=== PATIENT | male | born 1960 | race Hispanic/Latino ===

== ENCOUNTER 2018-01-19 11:42 | Emergency (ER) | payer OTHER ==
[2018-01-19 12:18] VITALS: BP 142/89; PULSE 85; RESP 17; TEMP 97; O2SAT 96
[2018-01-19] MEDS ORDERED: Insulin Regular 100 units/ml IV STA (12:50)
[2018-01-19] MEDS ORDERED: Insulin Regular 100 units/ml ONE (12:59)
[2018-01-19] MEDS: Sodium Chloride 0.9% 1,000 ML IV SCH ×2 (12:59→14:11)
[2018-01-19 13:07] LABS: BASO # 0.1 K/uL (0.0-0.2); BASO % 1.2 % (0.0-2.0); EOS # 0.1 K/uL (0.0-0.7); EOS % 0.9 % (0.0-4.0); HEMOGLOBIN 15.8 g/dL (12.0-18.0); LYMPH # 2.1 K/uL (1.0-4.3); LYMPH % 20.8 % (20.0-40.0); MEAN CELL VOLUME 88.9 fl (80.0-94.0); MEAN CORPUSCULAR HEMOGLOBIN 30.9 pg (27.0-31.0); MEAN CORPUSCULAR HGB CONC 34.8 g/dL (33.0-37.0); MEAN PLATELET VOLUME 8.5 fl (7.2-11.7); MONO # 1.1 K/uL (0.0-0.8); MONO % 11.3 % (0.0-10.0); NEUT # 6.7 K/uL (1.8-7.0); NEUT % 65.8 % (50.0-75.0); NRBC % 0.1 % (0.0-0.0); RBC 5.11 Mil/uL (4.40-5.90); RED CELL DISTRIBUTION WIDTH 13.5 % (11.5-14.5); WHITE BLOOD COUNT 10.1 K/uL (4.8-10.8)
[2018-01-19 13:12] LABS: ALBUMIN 3.6 g/dL (3.5-5.0); ALT/SGPT 91 U/L (21-72); AST/SGOT 52 U/L (17-59); BLOOD UREA NITROGEN 18 mg/dl (9-20); CALCIUM 9.2 mg/dL (8.4-10.2); GFR AFRICAN-AMERICAN > 60; GFR NON-AFRICAN AMERICAN > 60
--- NOTE | 2018-01-19 14:00 | ED PDOC ---
Hyperglycemia/Hypoglycemia Time Seen by Provider: 01/19/18 12:25 Chief Complaint (Nursing): High Blood Sugar Chief Complaint (Provider): High Blood Sugar History Per: Patient History/Exam Limitations: no limitations Onset/Duration Of Symptoms: Days (x 2 weeks ) Current Symptoms Are (Timing): Still Present Current Diabetic Medications: Insulin, Oral Medication : The patient does not have any of the infectious symptoms listed except for those marked. Additional Complaint(s): 57 year old male with a history of diabetes presents to the ED with fatigue and body aches for 2 weeks associated with tactile fever and chills. Reports he was recently diagnosed with diabetes 2 weeks ago and started on Metformin and an insulin pen. Patient reports he has been compliant with medication with the exception of today; patient reports he has not taken his insulin pen today. He further notes when he was diagnosed, his sugar was in the 300-400s range. His sugar has been ~230s this week. Denies nausea, vomiting, abdominal pain, shortness of breath, urinary symptoms, chest pain, headache, dizziness, weakness /numbness, and visual changes. PMD: Nori [place] Past Medical History Reviewed: Historical Data, Nursing Documentation, Vital Signs Vital Signs: Last Vital Signs Temp 97.0 F L 01/19/18 12:00 Pulse 85 01/19/18 12:00 Resp 17 01/19/18 12:00 BP 142/89 01/19/18 12:00 Pulse Ox 96 01/19/18 12:00 - Medical History PMH: Anxiety, Diabetes, HTN - Surgical History Surgical History: No Surg Hx - Family History Family History: States: Unknown Family Hx - Social History Current smoker - smoking cessation education provided: No Ex-Smoker (has not smoked in the last 12 months): Yes (Chews tobacco) Alcohol: < 2 Drinks/Day (=) Drugs: Denies - Home Medications Home Medications: Ambulatory Orders Medication Instructions Recorded Ciprofloxacin HCl [Cipro] 500 mg PO BID #14 tablet 01/19/18 - Allergies Allergies/Adverse Reactions: Allergies Allergy/AdvReac Type Severity Reaction Status Date / Time codeine AdvReac ITCHING Verified 01/19/18 12:18 Review of Systems ROS Statement: Except As Marked, All Systems Reviewed And Found Negative Constitutional: Positive for: Fever, Chills, Weakness (fatigue and body aches) Physical Exam - Reviewed Nursing Documentation Reviewed: Yes Vital Signs Reviewed: Yes - Physical Exam Comments: GENERALIZED APPEARANCE: Patient is awake, alert, oriented x3 in no acute distress. Resting comfortably. SKIN: Warm, dry; (-) cyanosis. HEAD: (-) scalp swelling or tenderness. EYES: (-) conjunctival pallor. ENMT: Mucous membranes moist. Airway patent, (-) stridor. NECK: Supple, FROM (-) tenderness, (-) stiffness, (-) lymphadenopathy. CHEST AND RESPIRATORY: (-) rales, (-) rhonchi, (-) wheezes; breath sounds equal bilaterally. Respirations even and nonlabored, speaking in full sentences. HEART AND CARDIOVASCULAR: (-) irregularity; (-) murmur ABDOMEN AND GI: Soft; (-) distention, (-) tenderness, (-) rebound, (-) guarding , (-) palpable masses, (-) flank/CVA tenderness. BACK: (-) midline tenderness EXTREMITIES: (-) deformity; (-) edema. Distal pulses: present. NEURO AND PSYCH: Mental status as above. 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 Strength symmetric. Gait: normal. Speech : clear. - Laboratory Results Result Diagrams: 01/19/18 12:53 01/19/18 12:53 Urine dip results: Positive for: Leukocyte Esterase (trace), Blood (trace- lysed ), Glucose (500), Protein (trace). Negative for: Nitrate, Ketones, Bilirubin - ECG O2 Sat by Pulse Oximetry: 96 (RA) Pulse Ox Interpretation: Normal Medical Decision Making Medical Decision Makin:31 Impression: hyperglycemia and fatigue Initial Plan: --IV access --Accucheck upon arrival: 316 --CMP --Urine dipstick --CBC --Insulin 6 units IV --NS IV --Repeat Finger stick s/p insulin administration 1400 Labs reviewed, hyperglycemia noted otherwise grossly unremarkable. 1415 Repeat Accucheck: 152 Udip reviewed. U/A and U/C ordered. 1445 Udip Reviewed, (+) UTI. Cipro PO ordered. On re-evaluation, patient reports improvement of symptoms. On exam, patient remains AAOx3, in no acute distress. Lungs clear to auscultation, cardiac RRR, abdomen soft, non-tender, repeat neuro exam shows no focal findings. VSS, stable for discharge. Advised to continue current DM medications from PMD and to complete course of Antibiotics for UTI. Lab/Diagnostic results d/w the patient in great detail. Diagnosis of hyperglycemia, fatigue, UTI d/w the patient. Based on history, exam and diagnostic results, plan will be for outpatient follow up. Patient instructed to follow-up with pmd / referral provided / the clinic in 1- 2 days without fail. Advised to take medication as prescribed. Return to the emergency room at any time for any new or worsening symptoms. Patient states he fully agrees with and understands discharge instructions. States that he agrees with the plan and disposition. Verbalized and repeated discharge instructions and plan. I have given the patient opportunity to ask any additional questions. ---- Scribe Attestation: Documented by Rand Salomon, acting as a scribe for Ashley Hollis PA-C Provider Scribe Attestation: All medical record entries made by the Scribe were at my direction and personally dictated by me. I have reviewed the chart and agree that the record accurately reflects my personal performance of the history, physical exam, medical decision making, and the department course for this patient. I have also personally directed, reviewed, and agree with the discharge instructions and disposition. Disposition - Clinical Impression Clinical Impression: Hyperglycemia, UTI (urinary tract infection), Fatigue - Patient ED Disposition Is Patient to be Admitted: No Counseled Patient/Family Regarding: Studies Performed, Diagnosis, Need For Followup, Rx Given - Disposition Disposition: Routine/Home Disposition Time: 14:46 Condition: STABLE Additional Instructions: FOLLOW UP WITH PMD IN 1-2 DAYS FOR FURTHER EVALUATION WITHOUT FAIL. RETURN TO ED WITH ANY NEW OR WORSENING SYMPTOMS. CONTINUE CURRENT DIABETES MEDICINE PRESCRIBED FROM PMD. COMPLETE COURSE OF ANTIBIOTICS FOR UTI UNTIL COMPLETE. The emergency medical care you received today was directed at your acute symptoms. If you were prescribed any medication, please fill it and take as directed. It may take several days for your symptoms to resolve. Return to the Emergency Department if your symptoms worsen, do not improve, or if you have any other problems. Please contact your doctor in 2 days for re-evaluation and follow up / or call one of the physicians/clinics you have been referred to that are listed on the Patient Visit Information form that is included in your discharge packet. Bring any paperwork you were given at discharge with you along with any medications you are taking to your follow up visit. Our treatment cannot replace ongoing medical care by a primary care provider (PCP) outside of the emergency department. Thank you for allowing the [facility] team to be part of your care today. If you had a urine / blood culture test done : We will call you regarding any positive results If you had a STD test done : We will call you regarding any positive results If you had an X-Ray : A Radiologist will review the ED reading if any change in treatment is needed we will contact you. Prescriptions: Ciprofloxacin HCl [Cipro] 500 mg PO BID #14 tablet Instructions: Urinary Tract Infections in Adults, Fatigue (DC), Hyperglycemia, Adult (DC), Blood Glucose Monitoring, The ABCs of Diabetes, Diabetes and Diet, How to Use an Insulin Pen Forms: [employer] (Bangladeshi) Print Language: CANADIAN - POA Present On Arrival: Poor Glycemic Control Results - Lab Results Lab Results: 01/19/18 01/19/18 01/19/18 14:24 12:53 12:53 WBC 10.1 RBC 5.11 Hgb 15.8 Hct 45.4 MCV 88.9 MCH 30.9 MCHC 34.8 RDW 13.5 Plt Count 289 MPV 8.5 Neut % (Auto) 65.8 Lymph % (Auto) 20.8 Clinch % (Auto) 11.3 H Eos % (Auto) 0.9 Baso % (Auto) 1.2 Neut # (Auto) 6.7 Lymph # (Auto) 2.1 Clinch # (Auto) 1.1 H Eos # (Auto) 0.1 Baso # (Auto) 0.1 Sodium 133 Potassium 4.2 Chloride 94 L Carbon Dioxide 26 Anion Gap 17 BUN 18 Creatinine 0.9 Est GFR ( Amer) > 60 Est GFR (Non-Af Amer) > 60 POC Glucose (mg/dL) Random Glucose 345 H Calcium 9.2 Total Bilirubin 0.8 AST 52 ALT 91 H Alkaline Phosphatase 111 Total Protein 7.2 Albumin 3.6 Globulin 3.6 Albumin/Globulin Ratio 1.0 Urine Color Yellow Urine Clarity Cloudy Urine pH 6.0 Ur Specific [place] 1.015 Urine Protein Negative Urine Glucose (UA) >=500 Urine Ketones Negative Urine Blood Small Urine Nitrate Negative Urine Bilirubin Negative Urine Urobilinogen 4.0 Ur Leukocyte Esterase Mod Urine RBC (Auto) 6 H Urine Microscopic WBC 76 H Urine Bacteria Occ H 01/19/18 12:49 WBC RBC Hgb Hct MCV MCH MCHC RDW Plt Count MPV Neut % (Auto) Lymph % (Auto) Clinch % (Auto) Eos % (Auto) Baso % (Auto) Neut # (Auto) Lymph # (Auto) Clinch # (Auto) Eos # (Auto) Baso # (Auto) Sodium Potassium Chloride Carbon Dioxide Anion Gap BUN Creatinine Est GFR ( Amer) Est GFR (Non-Af Amer) POC Glucose (mg/dL) 316 H Random Glucose Calcium Total Bilirubin AST ALT Alkaline Phosphatase Total Protein Albumin Globulin Albumin/Globulin Ratio Urine Color Urine Clarity Urine pH Ur Specific [place] Urine Protein Urine Glucose (UA) Urine Ketones Urine Blood Urine Nitrate Urine Bilirubin Urine Urobilinogen Ur Leukocyte Esterase Urine RBC (Auto) Urine Microscopic WBC Urine Bacteria
[2018-01-19 14:37] LABS: URINE BACTERIA OCC (<OCC); URINE BILIRUBIN NEGATIVE (NEGATIVE); URINE BLOOD SMALL (NEGATIVE); URINE CLARITY CLOUDY (Clear); URINE COLOR YELLOW (YELLOW); URINE GLUCOSE (UA) >=500 mg/dL (Normal); URINE LEUKOCYTE ESTERASE MOD Leu/uL (Negative); URINE PROTEIN NEGATIVE (NEGATIVE)
== END 2018-01-19 15:04 | disposition home or self-care (01) ==
LOC: H.ER 11:42
DX: E11.65 Type 2 diabetes mellitus with hyperglycemia (principal); N39.0 Urinary tract infection, site not specified; R53.83 Other fatigue; I10 Essential (primary) hypertension; F41.9 Anxiety disorder, unspecified; Z88.5 Allergy status to narcotic agent
CPT/HCPCS: 80053; 81003; 82948; 85025; 87086; 87181; 96360; 99284; J7030